=== PATIENT | male | born 1995 | race Caucasian/White ===

== ENCOUNTER 2020-02-22 20:45 | Emergency (ER) | payer OTHER ==
[~2020-02-22] VITALS: Ht 175.3 cm; Wt 77.1 kg
[2020-02-22 21:01] VITALS: Ht 175.3 cm; Wt 77.1 kg
[2020-02-22 22:08] LABS: BASOPHIL % 0.3 % (0-2); PLATELET COUNT 223 x10^3mcL (130-400); RED CELL DISTRIBUTION WIDTH 13.6 % (11.5-14.5)
[2020-02-22 22:16] LABS: CALCIUM 9.2 mg/dL (8.5-10.1); CARBON DIOXIDE 28.5 mmol/L (21-32); CHLORIDE SERUM 101 mmol/L (98-107); CREATININE SERUM 0.9 mg/dL (0.7-1.3); GFR1 > 60 mL/min; GLUCOSE SERUM 105 mg/dL (74-106); POTASSIUM SERUM 4.3 mmol/L (3.5-5.1); SODIUM SERUM 137 mmol/L (136-145)
[2020-02-22 22:21] LABS: ALBUMIN 3.6 g/dL (3.4-5.0); ALKALINE PHOSPHATASE 99 U/L (46-116); ALT/SGPT 23 U/L (16-63); AST/SGOT 14 U/L (15-37); BILIRUBIN TOTAL 0.25 mg/dL (0.20-1.00); TOTAL PROTEIN, SERUM 7.4 g/dL (6.4-8.2)
[2020-02-23 02:15] VITALS: BP 146/86
== END 2020-02-23 02:17 | disposition home or self-care (01) ==
LOC: ED 20:45
PROVIDERS: Emergency Medicine
DX: N45.1 Epididymitis (principal); N45.2 Orchitis
CPT/HCPCS: 87491; 87591; J0696; J2270; J7030; Q0092

== ENCOUNTER 2020-02-23 13:11 | Inpatient (IN) | payer OTHER ==
[~2020-02-23] VITALS: Ht 175.3 cm; Wt 77.1 kg
[2020-02-23 13:20] VITALS: Ht 175.3 cm; Wt 77.1 kg
[2020-02-23 14:06] LABS: BASOPHIL % 0.2 % (0-2); PLATELET COUNT 217 x10^3mcL (130-400); RED CELL DISTRIBUTION WIDTH 13.6 % (11.5-14.5)
[2020-02-23 14:18] LABS: CALCIUM 9.1 mg/dL (8.5-10.1); CARBON DIOXIDE 26.8 mmol/L (21-32); CHLORIDE SERUM 101 mmol/L (98-107); CREATININE SERUM 0.9 mg/dL (0.7-1.3); GFR1 > 60 mL/min; GLUCOSE SERUM 119 mg/dL (74-106); POTASSIUM SERUM 3.9 mmol/L (3.5-5.1); SODIUM SERUM 137 mmol/L (136-145)
[2020-02-23 14:22] LABS: ALKALINE PHOSPHATASE 99 U/L (46-116); ALT/SGPT 18 U/L (16-63); AST/SGOT 14 U/L (15-37); BILIRUBIN TOTAL 0.32 mg/dL (0.20-1.00); TOTAL PROTEIN, SERUM 7.1 g/dL (6.4-8.2)
[2020-02-23 14:24] LABS: ALBUMIN 3.3 g/dL (3.4-5.0)
[2020-02-23 16:50] LABS: CHOLESTEROL/HDL RATIO 2.7; MAGNESIUM 1.8 mg/dL (1.8-2.4); PHOSPHOROUS 3.5 mg/dL (2.5-4.9)
[2020-02-23 17:20] LABS: FREE T4 1.12 ng/dL (0.76-1.46); FREE THYROXINE INDEX 2.5 ug/dL (1.4-4.5); T4(THYROXINE) 7.1 ug/dL (4.7-13.3)
[2020-02-23 17:41] VITALS: BP 132/81
[2020-02-23 18:26] LABS: T3 TOTAL 1.21 ng/mL
[2020-02-23 20:45] VITALS: BP 123/80
[2020-02-24 02:59] LABS: microscopic required? YES; urine erythrocyte NEGATIVE (NEGATIVE)
[2020-02-24 03:16] LABS: AMPHETAMINE QUAL UR POSITIVE (See below)
[2020-02-24 05:11] VITALS: BP 126/80
[2020-02-24 06:36] LABS: BASOPHIL % 0.2 % (0-2); PLATELET COUNT 203 x10^3mcL (130-400); RED CELL DISTRIBUTION WIDTH 13.3 % (11.5-14.5)
[2020-02-24 07:00] LABS: CALCIUM 8.6 mg/dL (8.5-10.1); CHLORIDE SERUM 104 mmol/L (98-107); CREATININE SERUM 0.8 mg/dL (0.7-1.3); GFR1 > 60 mL/min; GLUCOSE SERUM 87 mg/dL (74-106); MAGNESIUM 1.9 mg/dL (1.8-2.4); PHOSPHOROUS 3.6 mg/dL (2.5-4.9); POTASSIUM SERUM 4.2 mmol/L (3.5-5.1); SODIUM SERUM 139 mmol/L (136-145)
[2020-02-24 08:44] VITALS: BP 126/79
[2020-02-24 16:38] VITALS: BP 136/80
[2020-02-24 20:05] VITALS: BP 141/83
[2020-02-25 05:10] VITALS: BP 142/92
[2020-02-25 05:20] LABS: CALCIUM 9.1 mg/dL (8.5-10.1); CARBON DIOXIDE 32.2 mmol/L (21-32); CHLORIDE SERUM 102 mmol/L (98-107); CREATININE SERUM 0.8 mg/dL (0.7-1.3); GFR1 > 60 mL/min; GLUCOSE SERUM 85 mg/dL (74-106); POTASSIUM SERUM 4.7 mmol/L (3.5-5.1); SODIUM SERUM 139 mmol/L (136-145)
[2020-02-25 06:03] LABS: BASOPHIL % 0.3 % (0-2); PLATELET COUNT 241 x10^3mcL (130-400); RED CELL DISTRIBUTION WIDTH 13.3 % (11.5-14.5)
[2020-02-25 09:02] VITALS: BP 134/77
[2020-02-25 17:04] VITALS: BP 113/77
[2020-02-25 20:17] VITALS: BP 128/72
[2020-02-26 05:10] VITALS: BP 130/79
[2020-02-26 06:29] LABS: BASOPHIL % 0.3 % (0-2); PLATELET COUNT 274 x10^3mcL (130-400); RED CELL DISTRIBUTION WIDTH 13.5 % (11.5-14.5)
[2020-02-26 07:00] LABS: CALCIUM 9.5 mg/dL (8.5-10.1); CARBON DIOXIDE 28.7 mmol/L (21-32); CHLORIDE SERUM 99 mmol/L (98-107); CREATININE SERUM 0.8 mg/dL (0.7-1.3); GFR1 > 60 mL/min; GLUCOSE SERUM 85 mg/dL (74-106); SODIUM SERUM 135 mmol/L (136-145)
[2020-02-26 08:35] VITALS: BP 128/61
[2020-02-26 10:30] VITALS: BP 128/61
[2020-02-26] MEDS ORDERED: DOXYCYCLINE100 M4 PO (10:52)
[2020-02-26] MEDS ORDERED: MOT600 PO (10:54)
== END 2020-02-26 12:13 | disposition home or self-care (01) | DRG 501 ==
LOC: ED 13:11 → MU 15:43
PROVIDERS: Emergency Medicine; ADMIT Family Medicine
DX: N45.3 Epididymo-orchitis (principal); E44.1 Mild protein-calorie malnutrition; D64.9 Anemia, unspecified; F15.10 Other stimulant abuse, uncomplicated; Z68.25 Body mass index [BMI] 25.0-25.9, adult
CPT/HCPCS: 83880; 84439; 87491; 87591; G0378; J0696; J2270; J2405; J3490; J7030; J7060; Q0092